=== PATIENT | female | born 1980 | race Hispanic/Latino ===

== ENCOUNTER 2017-01-12 18:01 | Emergency (ER) | payer OTHER ==
[~2017-01-12] VITALS: Ht 165.1 cm; Wt 63.5 kg
[2017-01-12 18:52] LABS: ABSOLUTE BASOPHIL COUNT 0 /CUMM (0.0-0.2); ABSOLUTE EOSINOPHIL COUNT 0.2 /CUMM (0.0-0.7); ABSOLUTE LYMPH COUNT 2.5 /CUMM (1.2-3.4); ABSOLUTE MONOCYTE COUNT 0.6 /CUMM (0.10-0.60); BASOPHIL % 0.4 % (0.0-2.0); EOSINOPHIL % 1.8 % (0-5); GRANULOCYTE % 61.2 % (42.2-75.2); MEAN CORPUSCULAR HGB 27.2 PG (27.0-31.0); MEAN CORPUSCULAR HGB CONC 32.9 G/DL (33.0-37.0); MEAN CORPUSCULAR VOLUME 82.7 FL (81.0-99.0); MEAN PLATELET VOLUME 8.6 FL (7.4-10.4); PLATELET COUNT 183 /CUMM (130-400); RBC DISTRIBUTION WIDTH 13.7 % (11.5-14.5); RED BLOOD CELL CT 4.72 /CUMM (4.20-5.40); WHITE BLOOD CELL COUNT 8.2 /CUMM (4.8-10.8)
--- NOTE | 2017-01-12 20:06 | ED GI/GU/ABDOMINAL COMPLAINT ---
History of Present Illness General Chief Complaint: General Adult Stated Complaint: NUMBNESS IN LEG, ABD PAIN Source: patient Exam Limitations: no limitations Vital Signs & Intake/Output Vital Signs & Intake/Output Vital Signs Date Time Temp Pulse Resp B/P B/P Pulse O2 O2 Flow FiO2 Mean Ox Delivery Rate 01/12 2058 97.3 62 18 120/75 99 Room Air 01/12 1816 97.7 73 18 137/82 97 Room Air Allergies Coded Allergies: peanut (HIVES, ITCHY 01/12/17) Reconcile Medications Pnv#26/Iron Poly/FA/Dha (Vitafol-One Capsule) 29 MG IRON-1 MG-200 MG CAPSULE 1 CAP PO DAILY SUPPLEMENT (Reported) Triage Note: PT STATES SHE HASN'T HAD HER PERIOD IN TWO MONTHS AND SHE IS FEELING LIGHT HEADED AND NUMBNESS IN HER LEGS. PT HAVING ABD PAIN ON AND OFF Triage Nurses Notes Reviewed? yes ? N Is pt currently ? No HPI: Patient presents with intermittent right lower quadrant, left lower quadrant and suprapubic crampy pain that has been coming and going for the past 2 months. Patient states his symptoms slowly, and lasts a few hours ago way. There are no aggravating or mitigating factors. There is no dysuria or hematuria. No nausea or vomiting. There is no constipation or diarrhea. Patient states that occasionally she gets tingling going down the front of both thighs. There is no weakness or numbness. Sometimes gets a tingling when she has the crampy abdominal pain and other times she does not have the crampy abdominal pain when she gets those symptoms. The tingling last a few minutes and goes away. There is no incontinence of bowel or bladder. There is no difficulty walking. Patient has been seen by her retail clerk and her exam was normal. Patient has a follow-up with her retail clerk next week. At its worst crampy abdominal pain is 6 out of 10. Currently it is a 2 out of 10. Past History Travel History Traveled to [place] past 21 day No Medical History Any Pertinent Medical History? see below for history Cardiovascular: HEART MURMUR Surgical History Surgical History: non-contributory Psychosocial History What is your primary language [place] Tobacco Use: Current Daily Use Daily Tobacco Use Amount/Type: => 5 Cigarettes daily ETOH Use: occasional use Illicit Drug Use: denies illicit drug use Family History Hx Contributory? No Review of Systems Review of Systems Constitutional: Reports: no symptoms. EENTM: Reports: no symptoms. Respiratory: Reports: no symptoms. Cardiovascular: Reports: no symptoms. GI: Reports: see HPI, abdominal pain. Genitourinary: Reports: no symptoms. Musculoskeletal: Reports: no symptoms. Skin: Reports: no symptoms. Neurological/Psychological: Reports: see HPI. Hematologic/Endocrine: Reports: no symptoms. Immunologic/Allergic: Reports: no symptoms. All Other Systems: Reviewed and Negative Physical Exam Physical Exam General Appearance: well developed/nourished, alert, awake, mild distress Head: atraumatic, normal appearance Eyes: Bilateral: PERRL, EOMI. Ears, Nose, Throat, Mouth: hearing grossly normal, moist mucous membrane Neck: normal inspection, supple, full range of motion Respiratory: normal breath sounds, chest non-tender, no respiratory distress, lungs clear Cardiovascular: regular rate/rhythm, normal peripheral pulses Gastrointestinal: normal bowel sounds, soft, non-tender, no organomegaly Back: normal inspection, normal range of motion, NO CVA TENDERNESS Extremities: normal range of motion Neurologic/Psych: no motor/sensory deficits, awake, alert, oriented x 3, normal gait, normal mood/affect Skin: intact, normal color, warm/dry Core Measures ACS in differential dx? No Severe Sepsis Present: No Septic Shock Present: No Progress Differential Diagnosis: diverticulitis, ectopic , endometritis, ischemic bowel, inflamm bowel dis, intrauterine , kidney stone, ovarian cyst, ovarian torsion, PID/cervicitis, threatened AB, UTI/pyelo Plan of Care: Orders Procedure Date/time Status URINE 01/12 1818 Complete URINALYSIS 01/12 1818 Complete COMPREHENSIVE METABOLIC PANEL 01/12 1818 Complete CBC WITHOUT DIFFERENTIAL 01/12 1818 Complete Laboratory Tests 01/12/17 182: Anion Gap 11, Estimated GFR > 60, BUN/Creatinine Ratio 15.7, Glucose 89, Calcium 9.9, Total Bilirubin 0.4, AST 22, ALT 34, Alkaline Phosphatase 61, Total Protein 7.3, Albumin 4.4, Globulin 2.9, Albumin/Globulin Ratio 1.5, CBC w Diff NO MAN DIFF REQ, RBC 4.72, MCV 82.7, MCH 27.2, RDW 13.7, MPV 8.6, Gran % 61.2, Lymphocytes % 29.9, Monocytes % 6.7, Eosinophils % 1.8, Basophils % 0.4, Absolute Granulocytes 5.0, Absolute Lymphocytes 2.5, Absolute Monocytes 0.6, Absolute Eosinophils 0.2, Absolute Basophils 0, PUBS MCHC 32.9 L, Urine Color YEL, Urine Clarity HAZY H, Urine pH 6.5, Ur Specific [place] 1.010, Urine Protein NEG, Urine Ketones NEG, Urine Nitrite NEG, Urine Bilirubin NEG, Urine Urobilinogen 0.2, Ur Leukocyte Esterase TRACE H, Ur Microscopic SEDIMENT EXAMINED, Urine WBC RARE, Ur Epithelial Cells MANY H, Urine Bacteria FEW H, Urine Mucus RARE, Urine Hemoglobin NEG, Urine Glucose NEG, Urine Test NEGATIVE Diagnostic Imaging: Viewed by Me: CT Scan. Discussed w/RAD: CT Scan. Radiology Impression: PATIENT: ARJUN LAGUNAS PRESENT AGE: 36 PATIENT ACCOUNT NO: [id number] : 80 LOCATION: [facility] ORDERING PHYSICIAN: MAURISIO GONZALEZ MD SERVICE DATE: 01/12/17-2026 EXAM TYPE: CAT - CT ABD & PELVIS W IV CONTRAST EXAMINATION: CT ABDOMEN AND PELVIS WITH CONTRAST CLINICAL INFORMATION: 36-year-old female patient with right lower quadrant and left lower quadrant abdominal pain. COMPARISON: None TECHNIQUE: Multidetector volumetric imaging was performed of the abdomen and pelvis before and after the IV administration of 95 mL of Optiray 320 intravenous contrast. Sagittal and coronal reformatted images were obtained on the technologist's workstation. DLP: 256 mGy-cm FINDINGS: MESH MAN: There is a moderate increased burden of formed stool throughout the colon but no impaction. LUNG BASES: 2 small pleural-based pulmonary nodules are located in the right lower lobe and one in the middle lobe. Otherwise lungs are clear. There is no pleural effusion. LIVER, GALLBLADDER, AND BILIARY TREE: The liver is normal in size, shape, and attenuation. No focal hepatic lesion or biliary ductal dilatation is present. The gallbladder has a postprandial appearance. PANCREAS: Unremarkable. SPLEEN: Unremarkable. ADRENAL GLANDS: Unremarkable. KIDNEYS AND URETERS: The kidneys are normal in size, shape, and attenuation. No hydronephrosis, hydroureter, or calculi seen. No perinephric stranding. BLADDER: Unremarkable. GASTROINTESTINAL TRACT: The appendix is normal. The small bowel is normal in caliber but the terminal ileum contains "fecaloid" contents. Also, the distal small bowel mesentery in the lower abdomen/pelvis shows increased stranding, a nonspecific finding. This is seen in association with a trace amount of fluid in the mesentery. Series 2, image 61. Except for the increased burden of formed stool, the colon is normal. ABDOMINAL WALL: No significant hernia is appreciated. There is a small fat-containing umbilical hernia. LYMPH NODES: Normal. VASCULAR: Unremarkable. PELVIC VISCERA: Uterus is retroverted. The ovaries are normal. A small amount of free fluid is seen in the cul-de-sac and this is considered to be physiologic. OSSEOUS STRUCTURES: Unremarkable. IMPRESSION: 1. Nonspecific mesenteritis of the distal small bowel. Fecaloid contents of the terminal ileum. (No obstruction). 2. Increased burden of formed stool without colonic dilatation. 3. Normal appendix. DICTATED BY: CHARLENE MIKE MD DATE/TIME DICTATED:01/12/172054 CONSTRUCTION TRENCH DIGGER:DEBORAH DATE/TIME TRANSCRIBED:2054 CONFIDENTIAL, DO NOT COPY WITHOUT APPROPRIATE AUTHORIZATION. < Electronically signed in Other Vendor System> SIGNED BY: CHARLENE MIKE MD 01/12/172119 Initial ED EKG: none Departure Departure Disposition: HOME OR SELF CARE Condition: Stable Clinical Impression Primary Impression: Lower abdominal pain, unspecified Referrals: PATIENT HAS NO PRIMARY CARE DR (PCP/Family) Additional Instructions: FOLLOW UP WITH YOUR GYNOCOLOGIST RETURN FOR ANY CONCERNS Departure Forms: Customer Survey General Discharge Information
[2017-01-12] MEDS ORDERED: VITAFOL-ONE CA1 EACH PO (20:18)
[2017-01-12 20:58] VITALS: BP 120/75
--- NOTE | 2017-01-12 21:20 | CT SCAN REPORT ---
EXAMINATION: CT ABDOMEN AND PELVIS WITH CONTRAST CLINICAL INFORMATION: 36-year-old female patient with right lower quadrant and left lower quadrant abdominal pain. COMPARISON: None TECHNIQUE: Multidetector volumetric imaging was performed of the abdomen and pelvis before and after the IV administration of 95 mL of Optiray 320 intravenous contrast. Sagittal and coronal reformatted images were obtained on the technologist's workstation. DLP: 256 mGy-cm FINDINGS: SERVER DEVELOPER: There is a moderate increased burden of formed stool throughout the colon but no impaction. LUNG BASES: 2 small pleural-based pulmonary nodules are located in the right lower lobe and one in the middle lobe. Otherwise lungs are clear. There is no pleural effusion. LIVER, GALLBLADDER, AND BILIARY TREE: The liver is normal in size, shape, and attenuation. No focal hepatic lesion or biliary ductal dilatation is present. The gallbladder has a postprandial appearance. PANCREAS: Unremarkable. SPLEEN: Unremarkable. ADRENAL GLANDS: Unremarkable. KIDNEYS AND URETERS: The kidneys are normal in size, shape, and attenuation. No hydronephrosis, hydroureter, or calculi seen. No perinephric stranding. BLADDER: Unremarkable. GASTROINTESTINAL TRACT: The appendix is normal. The small bowel is normal in caliber but the terminal ileum contains "fecaloid" contents. Also, the distal small bowel mesentery in the lower abdomen/pelvis shows increased stranding, a nonspecific finding. This is seen in association with a trace amount of fluid in the mesentery. Series 2, image 61. Except for the increased burden of formed stool, the colon is normal. ABDOMINAL WALL: No significant hernia is appreciated. There is a small fat-containing umbilical hernia. LYMPH NODES: Normal. VASCULAR: Unremarkable. PELVIC VISCERA: Uterus is retroverted. The ovaries are normal. A small amount of free fluid is seen in the cul-de-sac and this is considered to be physiologic. OSSEOUS STRUCTURES: Unremarkable. IMPRESSION: 1. Nonspecific mesenteritis of the distal small bowel. Fecaloid contents of the terminal ileum. (No obstruction). 2. Increased burden of formed stool without colonic dilatation. 3. Normal appendix.
== END 2017-01-12 21:43 ==
LOC: ERH 18:01
PROVIDERS: Emergency Medicine
DX: R10.31 Right lower quadrant pain (principal); R10.32 Left lower quadrant pain
CPT/HCPCS: 74177; 81001; 81025